=== PATIENT | male | born 1965 | race Caucasian/White ===

== ENCOUNTER 2021-11-14 09:27 | Outpatient (CLI) | payer OTHER, SELFPAY ==
[2021-11-14 13:19] LABS: Chloride* 104 mmol/L (96-114); Potassium* 4.5 mmol/L (3.6-5.1); Sodium* 140 mmol/L (135-149)
[2021-11-14 13:22] LABS: Blood Urea Nitrogen* 12 mg/dL (7-30); Carbon Dioxide* 32 mmol/L (20-32); Cholesterol* 154 mg/dL (90-199); Creatinine* 0.8 mg/dL (0.5-1.5); Estimated Glomerular Filt Rate 103 ml/min; Glucose* 94 mg/dL (60-115)
[2021-11-14 13:23] LABS: Calcium* 9.5 mg/dL (8.4-10.6); HDL Cholesterol* 46 mg/dL (>=40); LDL Cholesterol Calculated 69 mg/dL (<100); Triglycerides* 196 mg/dL (40-149)
== END 2021-11-14 09:28 | disposition home or self-care (01) ==
PROVIDERS: Visit Provider Family Medicine
DX: Z01.818 Encounter for other preprocedural examination (principal); E78.5 Hyperlipidemia, unspecified; I10 Essential (primary) hypertension
CPT/HCPCS: 80048; 80061

== ENCOUNTER 2022-02-04 17:14 | Outpatient (CLI) | payer OTHER, SELFPAY ==
[2022-02-04 22:08] LABS: Albumin* 4.3 g/dL (3.3-5.0); Chloride* 100 mmol/L (96-114)
[2022-02-04 22:09] LABS: Potassium* 3.9 mmol/L (3.6-5.1); Sodium* 139 mmol/L (135-149)
[2022-02-04 22:11] LABS: Alanine Aminotransferase* 25 U/L (4-50); Alkaline Phosphatase* 80 U/L (40-150); Aspartate Amino Transferase* 28 U/L (12-35); Bilirubin Total* 0.5 mg/dL (0.1-1.5); Blood Urea Nitrogen* 16 mg/dL (7-30); Carbon Dioxide* 28 mmol/L (20-32); Creatinine* 0.8 mg/dL (0.5-1.5); Estimated Glomerular Filt Rate 103 ml/min; Glucose* 104 mg/dL (60-115); Total Protein* 6.8 g/dL (6.0-8.3)
[2022-02-04 22:12] LABS: Calcium* 9.8 mg/dL (8.4-10.6)
== END 2022-02-04 17:15 | disposition home or self-care (01) ==
LOC: FRMREF 17:15
PROVIDERS: PCP Family Medicine; Visit Provider Family Medicine
DX: Z01.818 Encounter for other preprocedural examination (principal); I10 Essential (primary) hypertension
CPT/HCPCS: 80053

== ENCOUNTER 2022-02-13 06:37 | Day surgery (SDC) | payer OTHER, SELFPAY ==
[2022-02-13] VITALS (42 sets, daily range): BP systolic 104–151; BP diastolic 40–106; PULSE 86–108; RESP 16–20; TEMP 35.9–36.6; O2SAT 88–95; BMI 34.9
[2022-02-13] MEDS: SODIUM CHLORIDE 0.9 % (FLUSH) 10 ML SYRINGE IVF (07:35)
[2022-02-13] MEDS: LACTATED RINGERS 1000 ML 1,000 ML 100 ML IV (07:35)
[2022-02-13] MEDS: fentaNYL 100 MCG/2 ML inj IVP (07:40)
[2022-02-13] MEDS: MIDAZOLAM HCL 1 MG/ML inj IVP (07:40)
--- NOTE | 2022-02-13 07:48 | W.PM.NB ---
Nerve Block Nerve Block Time Seen by Provider: 07:40 Date Seen: 02/13/22 Type of block requested by surgeon for post-operative analgesia: interscalene Side: left Time out performed: Yes Verification of patient name: Yes Verification of date of : Yes Site marking: site marked Name of person performing procedure: Chan Continuous monitoring Was continuous monitoring of O2 sat, B/P, teletypesetter monitor, recorded every 15 minutes?: Yes Procedure Checklist: sterile prep, needles and gloves Ultrasound guided. Images saved: Yes Medications given in 5ml increments after negative aspiration: Ropivicaine %: 0.5 mL: 20 Needle gauge: 22 Decadron (mg): 10 Precedex (mcg): 25 Patient tolerated procedure well: Yes Block Charges Block Charge (with Pro Fee): Brachial Plexus Use of Ultrasound Machine for Block: Yes- US Guidance/pain block
--- NOTE | 2022-02-13 07:53 | SUR.PREOP ---
TIME?OUT:?7:42 am PT/RN/MDA?VERIFICATION?OF?SURGICAL?SITE,?PROCEDURE,?AND?CONSENT OBTAINED?PRIOR?TO?INVASIVE?PROCEDURE.
[2022-02-13] MEDS: EPINEPHrine 1 MG in SODIUM CHLORIDE IRRIG SOLUTION 3,000 ML 9003 MG IRRIGATION ×4 (08:00→09:00)
--- NOTE | 2022-02-13 08:09 | SUR.PREOP ---
Verified neg covid antigen test taken at home on 02/12/22
--- NOTE | 2022-02-13 10:18 | CRLHL7_ITS ---
For Patients: As a result of the Cures Act, medical imaging exams and procedure reports are released immediately into your electronic medical record. You may view this report before your referring provider. If you have questions, please contact your health care provider. Indication: POST OP LEFT RCR Technique: Left shoulder 2 views. Comparison: None. Findings: Postop changes the. No fracture. Impression: Postop changes. No dislocation or acute fracture. Dictated by Robert Handley MD @ 02/13/2022 11:43:32 AM (Electronically Signed)
--- NOTE | 2022-02-13 10:41 | W.ANESCHARGE ---
Anesthesia Charges Start Date/Time Anesthesia Start Date: 02/13/22 Anesthesia Start Time: 08:29 Stop Date/Time Anesthesia Stop Date: 02/13/22 Anesthesia Stop Time: 10:46 Summary Emergency: No
--- NOTE | 2022-02-13 10:44 | W.ANESCHARGE ---
Anesthesia Charges Start Date/Time Anesthesia Start Date: 02/13/22 Anesthesia Start Time: 08:29 Stop Date/Time Anesthesia Stop Date: 02/13/22 Summary Emergency: No
--- NOTE | 2022-02-13 12:17 | PM.ORPRC ---
Procedure Note Date of procedure: 02/13/22 Procedure: PREOPERATIVE DIAGNOSES: 1. Left shoulder rotator cuff tear. 2. Left shoulder long head of biceps subluxation POSTOPERATIVE DIAGNOSES: 1. Left shoulder rotator cuff tear - upper border subscapularis; high-grade partial-thickness supraspinatus 2. Left shoulder long head of biceps subluxation 3. Left shoulder anterior and superior degenerative labral fraying tearing 4. 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 Left shoulder arthroscopic rotator cuff repair upper border subscapularis and high-grade partial-thickness supraspinatus tears. 2. Left shoulder arthroscopic long head of biceps tenodesis 3. Left shoulder arthroscopic extensive glenohumeral debridement SURGEON: Norbert Gallegos MD DOOR TO DOOR SELLING DISTRIBUTOR: Raheel Carver PA-C. Of note, a skilled assistant site manager was critical for this case to aide in patient positioning, suture manipulation, arm positioning, instrument positioning, and closure. ANESTHESIA: General plus preoperative supraclavicular block. EBL: Less than 50 mL IMPLANTS: Arthrex 4.75 mm BioComposite SwiveLock suture anchor (x2); 5.5 mm BioComposite SwiveLock suture (x1) COMPLICATIONS: None evident INDICATIONS: The patient is a pleasant, 56-year-old male who has experienced left shoulder pain that has been increasing in recent time. Physical exam and imaging were consistent with a rotator cuff tear. Given their findings, as well as the weakness and pain, and inadequate response to nonoperative management, recommendation was made for surgery. FINDINGS: Exam under anesthesia revealed stable shoulder with excellent range of motion. The diagnostic arthroscopy revealed grade 2-3 chondromalacia anterior superior humeral head with some loose chondral flaps. The Subscapularis tendon was intact and with a healthy attachment. The long head of the biceps tendon was subluxed through the bicipital groove and showed some low-grade partial-thickness tearing. The superior rotator cuff tendon was found to be torn and high-grade partial-thickness manner through the anterior to midportion of the supraspinatus. The labrum was degeneratively frayed and torn in the anterior and superior aspects. No loose bodies were identified within the pouch or subscapularis recess. PROCEDURE: Following a thorough discussion of risks, benefits, and alternatives, consent was obtained and the left shoulder was marked. The patient was brought to the operating room and placed supine on the operating table. Induction of anesthesia was completed after preoperative supraclavicular block was administered in preop holding. Appropriate time out was performed identifying proper patient, site, and procedure. 2 g IV Ancef was administered within 1 hour of incision preoperatively. The left upper extremity was prepped and draped in the appropriate sterile fashion using ChloraPrep prep. This was after the patient was positioned in the beach chair with their head in neutral alignment and all bony prominences well padded. The shoulder was insufflated with 20mL of normal saline via an 18g spinal needle from a posterior approach. An 11 blade skin incision allowed a blunt trochar to be inserted and diagnostic arthroscopy to be performed with the findings as noted above. An anterior portal was established with an outside in technique. This allowed the probe to be inserted and confirm the diagnostic arthroscopic findings. The shaver was then inserted and allowed debridement of the anterior and superior labrum as well as the humeral loose chondral flap tissue and biceps anchor stump region. The deep surface of the infraspinatus also underwent minor debridement which was separate from the repair location of the supraspinatus high-grade partial-thickness tear. Additionally, the long of the biceps was captured with a loop 'n tack technique and subsequently released from the bicipital tuberosity for arthroscopic tenodesis after debriding/preparing the bicipital groove and lesser tuberosity with the bur on reverse setting and a shaver. The stump was debrided with a shaver. Following this, the upper border subscapularis was repaired after debriding the lesser tuberosity with the shaver and Rake cautery. Subscapularis was captured in horizontal mattress fashion with a fiber tape suture. The tails were brought to a single anchor in the lesser tuberosity with excellent reapproximation of the subscap tendon and good excursion/tension. Thereafter, the subacromial space was entered. Here, complete bursectomy was performed. Further inspection of the supraspinatus and infraspinatus rotator cuff was performed. This identified week tissue on the bursal side. This was probed and indeed the probe penetrated through the tissue consistent with a high-grade partial-thickness tear. After gentle decortication of the greater tuberosity, a medial row anchor was placed with the FiberTapes pre-loaded. The 4 tails of the tapes and the eyelet sutures were then passed independently. These tails were brought to a single lateral row anchor with excellent reapproximation of the rotator cuff tissue and good stability. Prior to anchor funeral limousine driver removal, the eyelet sutures were tugged on for each anchor and found that the anchor had excellent stability within the bone. The shoulder was placed through range of motion and found to be stable. The rotator cuff was re-probed and found to be stable. Instruments were removed. Excess fluid was drained, closure performed with 4-0 Monocryl and Steri-Strips. Dressings were applied. Sling was applied. The patient was awoken from anesthesia and transferred to the PACU in stable condition. Of note, the needle tip from the scorpion needle did break off during the procedure. Although thorough inspection throughout subacromial space and glenohumeral joint showed no metallic foreign body, it is possible may have been washed out of the shoulder during her procedure and not appreciated. Postop radiographs of the shoulder did not reveal any metallic foreign body suggesting that it was not indeed present within the shoulder. A skilled assistant site manager was critical for this case to aid in patient positioning, limb positioning, skill to manipulate arthroscopic instruments and camera, suture management, patient safety, and closure. PLAN: 1. Elbow, forearm, wrist and digit range of motion of operative extremity as tolerated. 2. Encouraged ice. 3. Percocet for pain as needed. 4. Sling at all times except for ROM and showering. 5. Follow up with PA visit in 1-2 weeks for wound check. Initiate physical therapy following that visit for passive range of motion. Initiate active assisted range of motion at 3weeks. May do pendulums now.
--- NOTE | 2022-02-13 12:38 | W.ANESCHARGE ---
Anesthesia Charges Start Date/Time Anesthesia Start Date: 02/13/22 Anesthesia Start Time: 08:29 Stop Date/Time Anesthesia Stop Date: 02/13/22 Anesthesia Stop Time: 10:46 Summary Emergency: No
== END 2022-02-13 13:30 | disposition home or self-care (01) ==
PROVIDERS: PCP Family Medicine; Visit Provider Orthopaedic Surgery Sports Medicine
PROC: (CPT 29805; principal; 2022-02-13 08:15)
DX: M75.112 Incomplete rotator cuff tear or rupture of left shoulder, not specified as traumatic (principal); S43.432A Superior glenoid labrum lesion of left shoulder, initial encounter; M24.812 Other specific joint derangements of left shoulder, not elsewhere classified
CPT/HCPCS: 29827; 29828; 29823; 1630; 64415; 73030; 76942; C1713; J0171; J0330; J1100; J2250; J2370; J2405; J2704; J2710; J2795; J3010; J7120

== ENCOUNTER 2022-05-29 16:45 | Outpatient (RCR) | payer OTHER, SELFPAY | END 2022-10-31 23:59 | disposition home or self-care (01) | PROVIDERS: PCP Family Medicine; Visit Provider Physician Assistant Surgical | DX: Z98.890 Other specified postprocedural states (principal); M25.512 Pain in left shoulder; R53.1 Weakness; M25.60 Stiffness of unspecified joint, not elsewhere classified; Z51.89 Encounter for other specified aftercare | CPT/HCPCS: 97012; 97110; 97140; 97161 ==

== ENCOUNTER 2022-11-13 08:46 | Outpatient (CLI) | payer BC, SELFPAY ==
--- NOTE | 2022-11-13 09:15 | MR_ITS ---
[address] [address] Phone:?[phone] Fax:?[phone] Referring Physician Information: Norbert Gallegos M.D. [address] [facility] [address] Phone:?[phone] Fax:?[phone] Patient:Romulo Herr D.O.B:?1965 Sex:?Male Phone:?[phone] [facility] MRN:?[id number] Exam Date:?11/13/2022 EXAM: MRI OF THE LEFT KNEE CLINICAL INFORMATION: The patient is a 57-year-old with left knee pain. Evaluate for medial meniscal tear. PRIOR SURGERY: The patient has a history of prior surgery to the region. COMPARISON STUDIES: Comparison is made to prior radiographs dated 11/05/2022. TECHNICAL INFORMATION: Imaging was performed on a high-field, 1.5 Ludivina MR scanner. Axial proton-density and fat-suppressed T2 imaging of the left knee was performed in addition to sagittal proton-density and fat-suppressed proton- density imaging. Coronal proton-density and coronal STIR imaging was also performed. FINDINGS: Articular/Extraarticular collections: Effusion: Mild. Popliteal cyst: Minimal. Loose bodies: No well-defined intra-articular loose bodies are present. Subcutaneous and extraarticular soft tissues: Nonspecific subcutaneous soft tissue edema and/or hemorrhage can be seen circumferentially about the left knee. Osseous structures: Reactive marrow edema can be seen along the posterolateral aspect of the medial tibial plateau in the region of the meniscotibial attachment on coronal series 9 image 22. The findings are likely related to the meniscal tearing discussed below. No other bony abnormalities about the knee are seen. There is no evidence for fracture, contusion, or stress injury. Ligamentous structures: ACL: Intact and normal in appearance. PCL: Intact and normal in appearance. MCL: Intact and normal in appearance. LCL: Intact and normal in appearance. Posterolateral corner: Intact and normal in appearance. Posteromedial corner: No posteromedial corner soft tissue injury. Semimembranosus and pes anserine tendons demonstrate no tendinopathy or associated bursitis. Extensor mechanism/Patellar retinacular structures: Patellar tendon: Intact, without tendinopathy. Quadriceps tendon: Intact, without tendinopathy. Retinacula: The medial and lateral retinacula are intact. The medial patellofemoral ligament is intact. Medial compartment: Medial meniscus: The medial meniscus is abnormal in appearance. There is apical free edge and inferior surface tearing of the posterior horn, seen on coronal series 8 image 22 and on sagittal series 6 image 9. The area of tearing measures approximately 24 mm in mediolateral dimension. Additional inferior surface tearing of the middle one third of the medial meniscus can be seen on coronal series 8 image 20. The anterior horn of the medial meniscus appears intact. No parameniscal cyst formation is identified. Medial femoral condyle: Broad-based changes of grade II chondromalacia can be seen along the weightbearing surfaces of the medial femoral condyle. Medial tibial plateau: No chondromalacia, chondral defect, or osteochondral abnormality. Lateral compartment: Lateral meniscus: No evidence for lateral meniscal tearing is present. No evidence for parameniscal cyst formation can be seen. Lateral femoral condyle: No chondromalacia, chondral defect, or osteochondral abnormality. Lateral tibial plateau: No chondromalacia, chondral defect, or osteochondral abnormality. Patellofemoral compartment: Patella: There is a focus of full-thickness or near full-thickness chondral loss along the articular surfaces of the patella at the junction of the apex and lateral facet on axial series 5 image 10, measuring 8 mm in greatest dimension. Additional grade II to III chondromalacia involving the remaining articular surfaces of the patella can be seen. Trochlea: No chondromalacia, chondral defect, or osteochondral abnormality. Neurovascular: No definite neurovascular abnormalities are seen. CONCLUSION: 1. Broad-based tearing of the middle and posterior portions of the medial meniscus. No lateral meniscal tearing is seen. 2. Chondromalacia and chondral loss involving the patella and medial femoral condyle. 3. The cruciate and collateral ligaments appear intact. 4. Mild knee joint effusion and minimal popliteal cyst. [facility] Electronically signed on 11/13/2022 12:21:00 PM by Killian Arrington M.D.
== END 2022-11-13 08:47 | disposition home or self-care (01) ==
LOC: MRI 08:47
PROVIDERS: PCP Family Medicine; Visit Provider Orthopaedic Surgery Sports Medicine
DX: M25.562 Pain in left knee (principal); S83.242A Other tear of medial meniscus, current injury, left knee, initial encounter; M22.42 Chondromalacia patellae, left knee; M25.462 Effusion, left knee
CPT/HCPCS: 73721

== ENCOUNTER 2022-12-09 08:32 | Outpatient (CLI) | payer BC, SELFPAY | END 2022-12-09 08:33 | disposition home or self-care (01) | PROVIDERS: PCP Family Medicine; Visit Provider Family Medicine | DX: Z01.818 Encounter for other preprocedural examination (principal); E78.5 Hyperlipidemia, unspecified; I10 Essential (primary) hypertension; E66.9 Obesity, unspecified; Z12.5 Encounter for screening for malignant neoplasm of prostate | CPT/HCPCS: 80048; 80061; 84153; 84460; 85025 ==

== ENCOUNTER 2022-12-11 07:43 | Day surgery (SDC) | payer BC, SELFPAY ==
[2022-12-11] VITALS (14 sets, daily range): BP systolic 81–140; BP diastolic 49–97; PULSE 78–90; RESP 16–20; TEMP 36.3–36.6; O2SAT 92–97; BMI 35.8
[2022-12-11] MEDS: LACTATED RINGERS 1000 ML 1,000 ML 100 ML IV ×2 (08:05→11:03)
[2022-12-11] MEDS: SODIUM CHLORIDE 0.9 % (FLUSH) 10 ML SYRINGE IVF (08:05)
[2022-12-11] MEDS: CEFAZOLIN 2 GM in 0.9 % SODIUM CHLORIDE Mini-bag 100 ML IVPB (10:03)
--- NOTE | 2022-12-11 10:13 | W.ANESCHARGE ---
Anesthesia Charges Start Date/Time Anesthesia Start Date: 12/11/22 Anesthesia Start Time: 09:39 Stop Date/Time Anesthesia Stop Date: 12/11/22 Anesthesia Stop Time: 10:35
--- NOTE | 2022-12-11 10:17 | P.ORPRC_ITS ---
Procedure Note Date of procedure: 12/11/22 Procedure: PREOPERATIVE DIAGNOSIS: 1. Left knee medial meniscus tear POSTOPERATIVE DIAGNOSIS: 1. Left knee medial meniscus tear PROCEDURE: 1. Left knee arthroscopic partial medial meniscectomy SURGEON: Norbert Gallegos M.D. FINANCIAL BROKERS: Camille Esteban. Of note, an computer assistant was critical for this case to aid in patient positioning, knee manipulation, instrument exchange, and closure. ANESTHESIA: Spinal EBL: 25 mL TOURNIQUET: 25 minutes at 300 torr COMPLICATIONS: None evident INDICATIONS: The patient is a pleasant 57-year-old male who has experienced left knee pain particularly with any twisting or turning. Physical exam was concerning for medial meniscus tear, this was confirmed on MRI. Additionally, attempted nonoperative management has been tried, and failed. Thus, surgery was recommended. FINDINGS: Complex tearing medial meniscus from the posterior horn approaching the midbody. Posterior root was still intact. Grade 3 chondromalacia broadly through the weight-bearing portion medial femoral condyle. Lateral meniscus intact. ACL and PCL intact and robust. Grade 3 chondromalacia patella median ridge and medial facet as well as medial aspect of the lateral facet. Healthy articular cartilage lateral compartment. No loose bodies. DESCRIPTION OF PROCEDURE: After a thorough discussion of risks, benefits, and alternatives, the patient was brought to the operating room and placed upon the operating table. Induction of anesthesia was undertaken as previously noted. 2g iv Ancef was administered within 1 hr of incision preoperatively. Appropriate time-out was performed identifying proper patient, site, and procedure. The left lower extremity was prepped and draped in the appropriate sterile fashion using ChloraPrep. The limb was exsanguinated and tourniquet inflated. Anterolateral and anteromedial portals were established with an 11 blade, and a diagnostic arthroscopy was performed. This identified the findings as noted above. Following the diagnostic arthroscopy, a partial medial menisectomy was performed with the combination of basket forceps and a motorized shaver. Following this, the meniscus was re-probed and found to be stable. Approximately 20 % of the overall meniscus required resection. At this stage, the shaver was reinserted into the suprapatellar pouch and all remaining meniscal debris was evacuated. Instruments were removed, excess fluid was drained, and closure performed with 4-0 Monocryl with Steri-Strips. Dressings were applied, the tourniquet deflated, and the patient was awoken from anesthesia and transferred to the PACU in stable condition. PLAN: 1. Weightbear as tolerated operative extremity. Crutch / walker ambulation assistance PRN. Straight leg raise to be initiated starting tomorrow by the patient. 2. Ice, acetominophen and/or ibuprofen, and oxycodone for pain as needed. 3. Knee range of motion and quad sets/straight leg raise regularly 4. Follow up with PA visit in 7-10 days. for a wound check. Initiate physical therapy at that time
--- NOTE | 2022-12-11 10:21 | SUR.OPER ---
PATIENT QUESTIONS ANSWERED SATISFACTORILY PREOPERATIVELY.? PATIENT BROUGHT TO OR #3 PER CART.? Patient positioned supine on OR #3 bed.? The perioperative?team supported arms bilaterally on arm boards.? Final approval of positioning by surgeon.? CONTINUOUS IRRIGATION OF THE RIGHT KNEE DURING THE PROCEDURE WITH NACL.
[2022-12-11] MEDS: ROPIVACAINE 0.5% 30 ML 150 MG INJECTION (10:22)
== END 2022-12-11 12:05 | disposition home or self-care (01) ==
LOC: OR 07:44
PROVIDERS: PCP Family Medicine; Visit Provider Orthopaedic Surgery Sports Medicine
PROC: (CPT 29870; principal; 2022-12-11 09:30)
DX: S83.272A Complex tear of lateral meniscus, current injury, left knee, initial encounter (principal); M94.262 Chondromalacia, left knee
CPT/HCPCS: 29881; 01400; J0690; J2250; J2405; J2704; J2795; J3010; J7120

== ENCOUNTER 2022-12-31 16:12 | Outpatient (REF) | payer BC, SELFPAY ==
--- OUTSIDE RECORDS SUMMARY | 2022-12-31 16:16 | XMS_ITS | Continuity of Care Document ---
Author Name Unknown Organization [facility] Address [address] [place] [address] Phone Care Team Providers Care Front Desk Worker Name Role Phone Robert Mary Unavailable Unavailable Allergies, Adverse Reactions, Alerts Substance Reaction Status Criticality No Known Allergies Active No Inform ation Medications Medication Instructions Dosage Effective Dates (start - stop) Status Comments VALSARTAN-HYDROCHLOROTH IAZIDE (unknown strength) Not Available - Active ASPIRIN EC (unknown strength) Not Available - Active MULTIVITAMINS (unknown strength) Not Available - Active OMEPRAZOLE (unknown strength) Not Available - Active CURCUMIN (unknown strength) Not Available - Active Procedures Procedure Date [place] [facility] [place] Directives Directive Yes / No Effective Date File Name No Information Encounters Encounter Description Practice Location Reason(s) For Visit Diagnoses Date Provider Providers Copied on Encounter Office/Outpat ient Visit,New, [facility], [address], [place], [place], [id number], [place] tel:[phone] [facility] Other intervertebral disc degeneration, lumbar regionSpinal stenosis, lumbar region without neurogenic claudication 0 Panelainea Robert. [facility], [address] [place] [address], [address], [place], [place], [id number] , [place]. tel:[phone] Referring Provider: Giles Billingsley , [facility] [address], [place], [address]. tel:[phone] Family History Family Member Type Diagnosis Age At Onset No Information Payers Payer name Insurance type Covered republican ID Authoreugenea raza(s) [employer] Individual And Family Plans CI [id number] Social History Type Description Quantity Date Captured Comments Alcohol Use Details Unknown Caffeine Use Details Unknown Tobacco Use Status Occasional cigarette smoker Smoking Status Heavy tobacco smoker Smoking Tobacco Use Details Cigarette: No Details Available Cigarette: 1 Packs per day Sex Male Vital Signs Date / Time: Height Weight BMI Pulse Rate Blood Pressure Temperature Respiratory Rate Body Surface Area Head Circumference Head Circ. Percentile Wt./Hieu. Percentile BMI percentile Pulse Ox Inhaled Ox 2:43 PM 68.00 in 98.883 kg (218.00 lbs) 33.1 5 kg/m eter (2) 91 /min 121/91 mm[Hg] Chief Complaint And Reason For Visit No Information Reason For Referral Reason For Referral No Information History Of Present Illness Encounter Date Complaint History Of Prese nt Illness No Information Functional Status Date Functional Assessmen t No Information Instructions Date Instruction Additional Infor mation No Information Assessments Type Assessment Date assessment Other intervertebral disc degene ration, lumbar region assessment Spinal stenosis, lumbar region w ithout neurogenic claudication Patient Care Teams Name Effective Dates (start - stop) Status Members No Information
--- OUTSIDE RECORDS SUMMARY | 2022-12-31 16:56 | XMS_ITS | Continuity of Care Document ---
Author Name Unknown Organization [facility] Address [address] [place] [address] Phone Care Team Providers Care Applications Intern Name Role Phone Robert Mary Unavailable Unavailable [...] - Active Procedures Procedure Date Office/Outpatient Visit,New, [facility] [place] Advance Directives Directive Yes / No Effective Date File Name No Information Encounters Encounter Description Practice Location Reason(s) For Visit Diagnoses Date Provider Providers Copied on Encounter Office/Outpat ient Visit,New, [facility], [address], [place], [place], [id number], [place] tel:[phone] [facility] Other intervertebral disc degeneration, lumbar regionSpinal stenosis, lumbar region without neurogenic claudication 0 Panelainea Robert. [facility], [address] [place] [address], [address], [place], [place], [id number] , [place]. tel:[phone] Referring Provider: Giles Billingsley , [facility] [address], [place], [address]. tel:[phone] Family History Family Member Type Diagnosis Age At Onset No Information Payers Payer name Insurance type Covered alliance party ID Authoreugenea raza(s) [employer] Individual And Family Plans CI [id number] Social History Type Description Quantity Date [...]
[2022-12-31 20:10] LABS: Mononuclear WBC Body Fluid* 97 %; Polynuclear WBC Body Fluid* 3 %; RBC, Body Fluid* 3000 Cells/uL; WBC, Body Fluid* 843 Cells/uL
[2022-12-31 20:13] LABS: BF Clarity* Slightly Cloudy; BF Color Xanthochromic; BF Total Volume* 6
== END 2022-12-31 16:13 | disposition home or self-care (01) ==
LOC: NPINS 16:12
PROVIDERS: PCP Family Medicine; Visit Provider Physician Assistant Surgical
DX: Z98.890 Other specified postprocedural states (principal); Z87.828 Personal history of other (healed) physical injury and trauma
CPT/HCPCS: 87070; 87075; 87205; 89051; 89060

== ENCOUNTER 2023-01-01 08:11 | Outpatient (CLI) | payer BC, SELFPAY ==
--- OUTSIDE RECORDS SUMMARY | 2023-01-01 08:14 | XMS_ITS | Continuity of Care Document ---
Author Name Unknown Organization [facility] Address [address] [place] [address] Phone Care Team Providers Care Molecular Physicist Name Role Phone Robert Mary Unavailable Unavailable [...] - Active Procedures Procedure Date [place] [facility] [place] Directives Directive Yes / No Effective Date File Name No Information Encounters Encounter Description Practice Location Reason(s) For Visit Diagnoses Date Provider Providers Copied on Encounter Office/Outpat ient Visit,New, [facility], [address], [place], [place], [id number], [place] tel:[phone] [facility] Other intervertebral disc degeneration, lumbar regionSpinal stenosis, lumbar region without neurogenic claudication 0 Panelainea Robert. [facility], [address] [place] [address], [address], [place], [place], [id number] , [place]. tel:[phone] Referring Provider: Giles Billingsley , [facility] [address], [place], [address]. tel:[phone] Family History Family Member Type Diagnosis Age At Onset No Information Payers Payer name Insurance type Covered green party ID Authoreugenea raza(s) [employer] Individual And Family Plans CI [id number] Social History Type Description Quantity Date [...]
== END 2023-01-01 08:12 | disposition home or self-care (01) ==
PROVIDERS: PCP Family Medicine; Visit Provider Family Medicine
DX: Z00.00 Encounter for general adult medical examination without abnormal findings (principal); E78.5 Hyperlipidemia, unspecified; I10 Essential (primary) hypertension; E66.9 Obesity, unspecified; Z12.5 Encounter for screening for malignant neoplasm of prostate
CPT/HCPCS: 82043; 82570; 84153

== ENCOUNTER 2023-02-05 18:30 | Outpatient (CLI) | payer BC, SELFPAY ==
--- NOTE | 2023-02-05 19:00 | MR_ITS ---
[facility] [address] [facility] [address] Phone:?[phone] Fax:?[phone] Referring Physician Information: Norbert Gallegos M.D. [address] [facility] [address] Phone:?[phone] Fax:?[phone] Patient:Romulo Herr D.O.B:?1965 Sex:?Male Phone:?[phone] [facility] MRN:?[id number] Exam Date:?02/05/2023 EXAM: MRI of the LEFT KNEE, without contrast CLINICAL: Left knee effusion. History of prior surgery in November 2022. Evaluate for stress reaction/fracture of the medial femoral condyle. COMPARISONS: MRI 11/13/2022. TECHNICAL: Multiplanar multisequence MRI of the left knee was obtained. SEDATION: None. CONTRAST: None. FINDINGS: Ligaments: ACL: Intact and unremarkable. PCL: Intact and unremarkable. MCL: Intact and unremarkable. LCL: Intact and unremarkable. Posterolateral corner: There is mild edema involving the popliteus muscle. Popliteus tendon, distal biceps femoris tendon, iliotibial band, and the popliteofibular ligament appear intact. Posteromedial corner: Semimembranosus, pes anserine tendons and posterior oblique ligament appear intact. Extensor mechanism: Patellar tendon: Intact, without tendinopathy. Quadriceps tendon: Intact, without tendinopathy. Retinacula: Medial and lateral retinacula are intact. Fat pads: Unremarkable infrapatellar Hoffa's, quadriceps and prefemoral fat pads. Patellofemoral joint: Patella: Small 6 mm segment of high-grade chondral loss involves the patellar median ridge on axial series 4 image 10 similar prior exam. Trochlea: Chondromalacia appears similar to prior exam. Medial compartment: Medial meniscus: Complex tearing of the posterior horn extending into the body and posterior root appears similar to prior examination. Also suspect postoperative changes involving the meniscus. There is medial extrusion of the peripheral body segment medial meniscus by approximately 3 mm. Medial cartilage: Full-thickness chondral loss involving the medial femoral condyle is increased compared to prior examination with underlying subchondral marrow edema. No new chondral defect involving the medial tibial plateau. Lateral compartment: Lateral meniscus: Ill-defined degenerative fraying involving the free edge of the body segment appears similar to prior exam. No new meniscal tear or displacement. Lateral cartilage: No significant chondromalacia. Knee joint: Effusion: Moderate left knee effusion. Intra-articular bodies:?There is synovitis and possibly intra-articular bodies within the suprapatellar joint recess. Tiny intra-articular body along the peripheral anterior horn lateral meniscus is seen on sagittal series 6 image 20. Popliteal cyst: None. Bones: No suspicious bone marrow signal alteration or fracture line. IMPRESSION: 1. Tearing of the medial meniscus similar to prior examination with suspected postoperative changes involving the medial meniscus. Approximately 3 mm of medial extrusion of the peripheral body segment medial meniscus. 2. Ill-defined degenerative fraying involving the free edge of the body segment lateral meniscus similar to prior exam. No new lateral meniscal tear. 3. Full-thickness chondral loss involving the medial femoral condyle is increased compared to prior examination with underlying subchondral marrow edema. Patellofemoral chondromalacia appears similar to prior exam. 4. Moderate left knee joint effusion with synovitis and possibly intra-articular bodies within the suprapatellar joint recess. Tiny intra-articular body along the peripheral anterior horn lateral meniscus. 5. No evidence of fracture or ligamentous injury. [facility] Electronically signed on 02/06/2023 7:41:00 AM by Grey Boudreaux D.O.
== END 2023-02-05 18:31 | disposition home or self-care (01) ==
LOC: MRI 18:32
PROVIDERS: PCP Family Medicine; Visit Provider Orthopaedic Surgery Sports Medicine
DX: M25.562 Pain in left knee (principal); M25.462 Effusion, left knee; S83.242A Other tear of medial meniscus, current injury, left knee, initial encounter; M22.42 Chondromalacia patellae, left knee; Z98.890 Other specified postprocedural states; Z87.828 Personal history of other (healed) physical injury and trauma
CPT/HCPCS: 73721

== ENCOUNTER 2023-07-24 17:16 | Outpatient (CLI) | payer BC, SELFPAY ==
--- OUTSIDE RECORDS SUMMARY | 2023-07-24 17:20 | XMS_ITS | Clinical Summary ---
Author Name Unknown Organization [employer] [facility] Address [place], [place] [address] Care Team Providers Care Press Box Custodian Name Role Phone [facility] Primary Care Provider Unavailabl e Allergies No known active allergies Medications Medication Sig Dispensed Refills Start Date End Date Status multivitamin-folic acid 0.4 mg (MULTIPLE VITAMINS DAILY) tablet Take 1 tablet by mouth once daily. 0 06/14/2010 Active esomeprazole (NEXIUM) 20 mg capsule Take 1 capsule by mouth once daily before a meal. 90 capsule 3 10/07/2013 Active hydrochlorothiazide (HCTZ) 25 mg tabletIndications:Hyp ertension TAKE ONE TABLET BY MOUTH EVERY DAY 90 tablet 0 07/12/2014 Active lisinopril (PRINIVIL; ZESTRIL) 10 mg tabletIndications:Ess ential hypertension Take 1 tablet by mouth once daily. For blood pressure. 90 tablet 2 05/11/2018 Active cyclobenzaprine (FLEXERIL) 10 mg tabletIndications:Chr onic midline low back pain without sciatica Use up to three times daily for muscle spasm/back pain. Use mostly at night only, may make you drowsy. 45 tablet 1 05/11/2018 Active Active Problems Problem Noted Date Diagnosed Date Obesity (BMI 30-39.9) 10/07/2013 Tobacco use disorder 03/06/2012 Essential hypertension 04/27/2010 Esophageal reflux 06/01/2008 Overview: Taking nexium. Has not had EGD. Immunizations Name Administration Dates Next Due HepA-HepB (Twinrix) 10/07/2013 Tdap 03/06/2012 Family History Relation Name Status Comments Father Maternal Grandfather Maternal Grandmother Mother Paternal Grandfather Paternal Grandmother Social History Tobacco Use Types Packs/Day Years Used Date Smoking Tobacco: Every Day Cigarettes 1.5 21 Smokeless Tobacco: Never Tobacco Cessation:Ready to Q uit: No Comments:pt declined info 07/24/11 Alcohol Use Standard Drinks/Week Comments Yes 0 (1 standard drink = 0.6 oz pur e alcohol) rare PHQ-2 Answer Date Recorded PHQ-2 Score 0 06/15/2018 Sex and Gender Information Value Date Recorded Sex Assigned at Not on file Gender Identity Not on file Sexual Orientation Not on file Obstetrics History Last Filed Vital Signs Vital Sign Reading Time Taken Comments Blood Pressure 126/88 05/11/2018 4:14 PM [employer] Pulse 84 05/11/2018 4:14 PM [employer] Temperature 36.9 ??C (98.5 ??F) 02/11/2014 8:45 AM CD T Respiratory Rate - - Oxygen Saturation 97% 02/11/2014 8:45 AM CDT Inhaled Oxygen Concentration - - Weight 103.2 kg (227 lb 9.6 oz) 05/11/2018 4:14 PM [employer]EL[employer] Height 172.7 cm (5' 8) 10/07/2013 7:50 AM CDT Body Mass Index 34.61 10/07/2013 7:50 AM CDT Plan of Treatment Health Maintenance Due Date Last Done Comments HIV for age 15-65 1979 BMI (ht and wt on same day) for age 18+ 1982 Colonoscopy through age 75 2009 Zoster (shingles) series for age 50+ (1 of 2) 2014 Lipids for age 45-75 04/11/2015 04/11/2010 Depression screening for age 12+ 05/11/2019 05/11/19 19 Tetanus booster 03/06/2022 03/06/2012 COVID-19 vaccine series ( season) 2022 Influenza for age 50-64 12/14/2023 Tdap Completed 03/06/2012 Hepatitis C screening for ag e 18-79 Completed 10/07/2013 Pneumococcal series for age 6-64 Aged Out No longer eligible based on patient's age to complete this topic Procedures Procedure Name Priority Date/Time Associated Diagnosis Comments ANTI HCV Routine 10/07/2013 8:48 AM CDT Need for hepatitis C screening test LIPID PANEL W REFLEX MEASURED LDL Routine 04/11/2010 3:57 PM [employer]ELOPER Screening, lipid from Last 3 Months or Most Recently Relevant to Health Maintenance Results * ANTI HCV [76762.2] (10/07/2013 8:48 AM CDT) HEPATITIS C ANTIBODY Non-Reacti ve Non-Reacti ve 10/07/2013 5:57 PM CDT [facility] Blood specimen (specimen) BLOOD SPECIMEN / Unknown Venipuncture / Unknown 10/07/2013 8:48 AM CDT 10/07/2013 8:48 AM CDT Narrative [facility] - 10/07/2013 5:57 PM CDT Antibodies to HCV not detected; does not exclude the possibility of exposure to HCV. Radha Casiano MD SEND OUTS [facility] [address] [place] [address], * LIPID PANEL W REFLEX MEASURED LDL (04/11/2010 3:57 PM [employer] APPLICATIONS DEVELOPER) CHOLESTEROL,TOTAL 190 110 - 199 mg/dL [facility] TRIGLYCERIDES 120 40 - 149 mg/dL [facility] HDL CHOLESTEROL 49 >40 mg/dL [facility] CHOL/HDL RATIO 3.88 <4.51 [facility] LDL CHOLESTEROL 117 <131 mg/dL [facility] PATIENT STATUS Fasting [facility] Blood specimen (specimen) BLOOD SPECIMEN / Unknown 04/11/2010 3:57 PM [employer] DEVELOPER 04/11/2010 3:56 PM [employer] DEVELOPER Radha Casiano MD CHEMISTRY [facility] [place]NAL ZIP [address] [place] [address] from Last 3 Months or Most Recently Relevant to Health Maintenance Care Teams Press Box Custodian Relationship Specialty Start Date End Date [facility] PCP - General 07/21/17
--- OUTSIDE RECORDS SUMMARY | 2023-07-24 17:20 | XMS_ITS | Encounter Summary ---
Author Name Unknown Organization [facility] Address [address] [place] [address] Care Team Providers Care Miter Sawyer Name Role Phone Coming Christiano Holley Burks MD Unavailable [phone] Deana Canales MD Primary Ca re Provider Encounter Details Date Type Department Care Team (Late st Contact Info) Description 12/04/2021 Orders Only [facility] Centralized Scheduling [address] [place] [address] Osmar Santiago MD [address] [place], [place] [id number] Social History Tobacco Use Types Packs/Day Years Used Date Smoking Tobacco: Every Day Cigarettes 0.5 35 Smokeless Tobacco: Never Alcohol Use Standard Drinks/Week Comments Not Currently 0 (1 standard drink = 0.6 oz pur e alcohol) very rare AUDIT-C Answer Date Recorded Frequency of Alcohol Consumption 2-4 times a fri10/17/2018 Average Number of Drinks Not on file 019 Frequency of Binge Drinking Not on file 09/2018 PHQ-2 Answer Date Recorded PHQ-2 Score 0 11/10/2020 Sex and Gender Information Value Date Recorded Sex Assigned at Not on file Gender Identity Not on file Sexual Orientation Not on file COVID-19 Exposure Response Date Recorded In the last 10 days, have yo u been in contact with someone who was confirmed or suspected to have Coronavirus/COVID-19? No / Unsure 11/29/2021 1:30 PM CDT documented as of this encounter Plan of Treatment Not on file documented as of this encounter Visit Diagnoses Not on filedocumented in this encounter Additional Health Concerns Assessment Noted Time PHQ-9 Depression Total Score: 5 11/12/19 21 7:02 AM CDT documented as of this encounter Care Teams Miter Sawyer Relationship Specialty Start Date End Date Deana Canales MD [address] [place] [address] PCP - General Family Medicine 12/04/21 [place] [address] [place] [address] Assigned PCP 11/19/20 documented as of this encounter
--- OUTSIDE RECORDS SUMMARY | 2023-07-24 17:20 | XMS_ITS | Referral Summary ---
Author Name Unknown Organization [facility] Address [address] [place] [address] Care Team Providers Care Licensed Occupational Therapy Assistant Name Role Phone Coming Christiano Holley Burks MD Unavailable [phone] Deana Canales MD Primary Ca re Provider Allergies Active Allergy Reactions Criticality Noted Date Comments No Known Allergies 05/03/2004 Medications Medication Sig Dispensed Refills Start Date End Date Status aspirin (ASA) 81 MG EC tablet Take 81 mg by mouth daily Active MULTIPLE VITAMIN PO Take 1 tablet by mouth daily Active rosuvastatin (CRESTOR) 40 MG tabletIndications: Hyperlipidemia LDL goal <130 Take 1 tablet (40 mg) by mouth daily 90 tablet 3 11/10/2020 Active valsartan-hydrochl orothiazide (DIOVAN HCT) 160-12.5 MG tabletIndications: Hypertension, unspecified type Take 1 tablet by mouth daily 90 tablet 3 11/10/2020 Active omeprazole (PRILOSEC) [address] capsule Take 20 mg by mouth daily Active nicotine (NICODERM CQ) 14 MG/24HR 24 hr patch USE 1 PATCH TRANSDERMALLY EVERY 24 HOURS FOR 4 WEEKS, THEN DECREASE TO 7MCG FOR 2 WEEKS. 11/15/2021 Active nicotine (NICODERM CQ) 7 MG/24HR 24 hr patch 1 PATCH TRANSDERMALLY EVERY 24 HOURS USE FOR 2 WEEKS AFTER COMPLETION OF 4 WEEKS ON 14MCG PATCH 11/14/2021 Active nicotine (COMMIT) [address] LOZENGE IN CHEEK EVERY 1-2 HOURS NEEDED FOR NICOTINE CRAVINGS, MAX:6 LOZENGES/DAY 11/14/2021 Active SUMAtriptan (IMITREX) 50 MG tablet TAKE ONE TABLET BY MOUTH AT ONSET OF HEADACHE, MAY REPEAT IN 2 HOURS IF NEEDED. MAX 200MG IN 24HR 02/24/2021 Active hydrOXYzine (ATARAX) 25 MG tabletIndications: Anxiety,Nervousnes s Take 1 tablet (25 mg) by mouth 3 times daily 60 tablet 3 12/13/2021 Active oxyCODONE (ROXICODONE) 5 MG tabletIndications: Spondylolisthesis of lumbosacral region Take 1 tablet (5 mg) by mouth every 4 hours as needed 60 tablet 12/13/2021 Active methocarbamol (ROBAXIN) 750 MG tabletIndications: Spondylolisthesis of lumbosacral region Take 1 tablet (750 mg) by mouth every 6 hours as needed for muscle spasms 60 tablet 3 12/13/2021 Active Active Problems Problem Noted Date Diagnosed Date Spondylolisthesis 12/13/2021 History of rotator cuff surgery 11/10/2020 History of knee surgery 11/10/2020 Hearing difficulty 11/10/2020 Class 1 obesity due to exces s calories with serious comorbidity and body mass index (BMI) of 34.0 to 34.9 in adult 04/10/2020 Back pain, unspecified back location, unspecified back pain laterality, unspecified chronicity 10/17/2018 Hypertension, unspecified type 10/17/2018 HYPERLIPIDEMIA LDL GOAL <130 02/11/2010 Hypersomnia with sleep apnea 10/03/2004 Overview: Problem list name updated by automated process. Provider to review TOBACCO USE DISORDER [305.1] 05/03/2004 Pure hypercholesterolemia Resolved Problems Problem Noted Date Diagnosed Date Resolved Date Esophageal reflux 06/01/2008 11/10/2020 Overview: Taking nexium. Has not had EGD. Taking nexium. Has not had EGD. Dyspnea and respiratory abnormality 05/03/2004 11/10/2020 Overview: has established Problem list name updated by automated process. Provider to review Immunizations Name Administration Dates Next Due TDAP Vaccine (Adacel) 10/17/2018,01/04/2015,02/13 Twinrix A/B 10/07/2013 Social History Tobacco Use Types Packs/Day Years Used Date Smoking Tobacco: Every Day Cigarettes 0.5 35 Smokeless Tobacco: Never Tobacco Cessation:Ready to Q uit: No; Counseling Given: Yes Alcohol Use Standard Drinks/Week Comments Not Currently 0 (1 standard drink = 0.6 oz pur e alcohol) very rare AUDIT-C Answer Date Recorded Frequency of Alcohol Consumption 2-4 times a fri10/17/2018 Average Number of Drinks Not on file 019 Frequency of Binge Drinking Not on file 09/2018 PHQ-2 Answer Date Recorded PHQ-2 Score 0 11/10/2020 Adolescent Education Answer Date Record ed Getting School Help Needed Not on file 01/27 Sex and Gender Information Value Date Recorded Sex Assigned at Not on file Gender Identity Not on file Sexual Orientation Not on file Last Filed Vital Signs Vital Sign Reading Time Taken Comments Blood Pressure 123/68 12/14/2021 8:17 AM CDT Pulse 102 12/14/2021 8:17 AM CDT Temperature 36.6 ??C (97.9 ??F) 12/14/2021 8:17 AM CD T Respiratory Rate 16 12/14/2021 8:17 AM CDT Oxygen Saturation 95% 12/14/2021 8:17 AM CDT Inhaled Oxygen Concentration - - Weight 103.3 kg (227 lb 12.8 oz) 12/13/2021 8:49 AM CDT Height 180.3 cm (5' 11) 12/13/2021 8:49 AM CDT Body Mass Index 31.77 12/13/2021 8:49 AM CDT Plan of Treatment Not on file Medical Devices Implanted Type Area Registration Clerk Device Identifier Shelf Expiration Date Model / Serial / Lot Screw Set Spne Star Opn Lnk Pathloc-L Strl Lf - [id number] Implanted:Qty : 4 on 12/13/2021 by Julissa Vigil MD at [facility] Metallic Hardware/An chor N/A: Spine Lumbar [employer] SPINE [id number] 09/13/2024 [id number] / / [id number] Jamir Spinal Pathloc-L Curve 50x6mm [id number] - [id number] Implanted:Qty : 2 on 12/13/2021 by Julissa Vigil MD at [facility] Metallic Hardware/An chor N/A: Spine Lumbar [employer] SPINE [id number] / / [id number] 10cc Sheppard-Tcp Sponge 25mm X 100mm Implanted:Qty : 1 on 12/13/2021 by Julissa Vigil MD at [facility] N/A: Spine Lumbar ARIEL [id number] 09/11/2026 AMWS-TCP- 10 / [id number] / [id number] Pathloc-L Mis Spinal System Mis Screw- Close Type Self Tapping- Double Thread 7.5x50mm Implanted:Qty : 3 on 12/13/2021 by Julissa Vigil MD at [facility] N/A: Spine Lumbar 10/08/2026 [id number] / / [id number] Pathloc-L Mis Spinal System Mis Screw- Close Type Self Tapping- Double Thread 7.5x50mm Implanted:Qty : 1 on 12/13/2021 by Julissa Vigil MD at [facility] N/A: Spine Lumbar 08/28/2026 [id number] / / [id number] Imp Wire Amee Amendia 1.4mmx18 Thrd [id number] - [id number] Implanted:Qty : 6 on 12/13/2021 by Julissa Vigil MD at [facility] N/A: Spine Lumbar AMENDIA [id number] / / [id number] Ollif Arrow Cage 27x11 Implanted:Qty : 1 on 12/13/2021 by Julissa Vigil MD at [facility] N/A: Spine Lumbar [id number] / / [id number] Procedures Procedure Name Priority Date/Time Associated Diagnosis Comments BASIC METABOLIC PANEL Routine 12/14/2021 6:35 AM CDT LIPID PANEL (EXTERNAL RESULT) Routine 11/14/2021 9:50 AM CDT from Last 3 Months or Most Recently Relevant to Health Maintenance Results * (ABNORMAL) Basic metabolic panel (12/14/2021 6:35 AM CDT) Creatinine 0.89 0.67 - 1.17 mg/dL 12/14/2021 7:47 AM CDT LABORATORY Sodium 134(L) 136 - 145 mmol/L 12/14/2021 7:47 AM CDT LABORATORY Potassium 4.1 3.4 - 5.3 mmol/L 12/14/2021 7:47 AM CDT LABORATORY Urea Nitrogen 14.9 6.0 - 20.0 mg/dL 12/14/2021 7:47 AM CDT LABORATORY Chloride 98 98 - 107 mmol/L 12/14/2021 7:47 AM CDT LABORATORY Carbon Dioxide (CO2) 26 22 - 29 mmol/L 12/14/2021 7:47 AM CDT LABORATORY Anion Gap 10 7 - 15 mmol/L 12/14/2021 7:47 AM CDT LABORATORY Glucose 123(H) 70 - 99 mg/dL 12/14/2021 7:47 AM CDT LABORATORY GFR Estimate >90 >60 mL/min/1.7 3m2 12/14/2021 7:47 AM CDT LABORATORY Comment:Effective March 152020 eGFRcr in adults is calculated using the 2020 CKD-EPI creatinine equation which includes age and gender (Roney et al., NEJM, DOI: 10.1056/QEYGwm0481157) Calcium 8.8 8.6 - 10.0 mg/dL 12/14/2021 7:47 AM CDT LABORATORY Blood TOPOGRAPHY UNKNOWN / Unknown Venipuncture / Unknown 12/14/2021 6:35 AM CDT 12/14/2021 7:04 AM CDT Julissa Vigil MD LAB - BLOOD ORDERABL ES LABORATORY [facility] [address] [facility] (1st floor, no room number) [place] [address], [facility] [phone] * (ABNORMAL) Lipid Panel (External Result) (11/14/2021 9:50 AM CDT) Cholesterol (External) 154 90 - 199 mg/dL [facility] Triglycerides (External) 196(H) 40 - 149 mg/dL [facility] HDL Cholesterol (External) 46 >=40 mg/dL [facility] LDL Cholesterol (External) 69 <100 mg/dL [facility] Blood 11/14/2021 9:50 AM CDT Narrative [facility] - 11/14/2021 9:50 AM CDT LAB RESULTS [facility] Provider Outside LAB - HIM EXTERNAL R ESULT [facility] [address] [place] [address], [facility] [phone] from Last 3 Months or Most Recently Relevant to Health Maintenance Advance Directives For more information, please contact: [phone] * Full Code (Latest Code Status on File) Date Activated Date Inactivated Comments 12/13/2021 12:12 PM 12/14/2021 1:31 PM All basic and advanced life-sustaining interventions are performed as appropriate Question Answer Comments Code status determined by: Discussion with abilio nt/ legal decision maker Care Teams Licensed Occupational Therapy Assistant Relationship Specialty Start Date End Date Deana Canales MD [facility] [address] [facility] [place] [id number] PCP - General Family Medicine 12/04/21 [place] [address] [place] [address] Assigned PCP 11/19/20
--- OUTSIDE RECORDS SUMMARY | 2023-07-24 17:20 | XMS_ITS | Clinical Summary ---
Author Name Unknown Organization [facility] Address [address] [place] [address] Care Team Providers Care Solar Energy Consultant And Designer Name Role Phone Coming Christiano Holley Burks MD Unavailable [phone] Deana Canales MD Primary Ca re Provider [...] TDAP Vaccine (Adacel) 10/17/2018,01/04/2015,02/13 Twinrix A/B 10/07/2013 Family History Medical History Relation Comments No Known Problems Father Jaundice Mother Relation Status Comments Father Mother Social History Tobacco Use Types Packs/Day Years [...] 12/13/2021 8:49 AM CDT Plan of Treatment Health Maintenance Due Date Last Done Comments ANNUAL REVIEW OF HM ORDERS 1964 CT COLONOGRAPHY 1964 FIT 1964 FLEX SIG 1964 sDNA (Cologuard) 1964 Pneumococcal Vaccine: Pediatrics (0 to 5 Years) and At-Risk Patients (6 to 64 Years) (1 of 2 - PCV) 1970 COLONOSCOPY 1974 COLORECTAL CANCER SCREENING 1974 HEPATITIS B IMMUNIZATION (2 of 3 - Hep B Twinrix 3-dose series) 11/04/2013 10/07/2013 LUNG CANCER SCREENING 2014 ZOSTER IMMUNIZATION (1 of 2) 2014 YEARLY PREVENTIVE VISIT 11/10/2021 11/10/2020, 05/03 LIPID 11/14/2022 11/14/2021, 10/14, 04/21/2020, Additional history exists COVID-19 Vaccine (1 - season) 2022 INFLUENZA VACCINE (#1) 2022 PHQ-2 (once per calendar year) 2023 11/10/2020, 11/10/2020, 10/17/2018 GLUCOSE 12/14/2024 12/14/2021, 05/2021, 11/14/2021, Additional history exists ADVANCE CARE PLANNING 11/13/2025 11/13/2020 DTAP/TDAP/TD IMMUNIZATION (4 - Td or Tdap) 10/17/2028 10/17/2018, 01/04/2015, 03/06/2012 HEPATITIS C SCREENING Addressed 11/10/2020 (Decline d) Overridden with the intention of not completing the topic HIV SCREENING Addressed 11/10/2020 (Declined) Overr idden with the intention of not completing the topic HPV IMMUNIZATION Aged Out No longer e ligible based on patient's age to complete this topic IPV IMMUNIZATION Aged Out No longer e ligible based on patient's age to complete this topic MENINGITIS IMMUNIZATION Aged Out No l onger eligible based on patient's age to complete this topic RSV MONOCLONAL ANTIBODY Aged Out No l onger eligible based on patient's age to complete this topic Medical Devices Implanted Type Area Communications Systems Engineer Device Identifier Shelf Expiration Date Model / Serial / Lot Screw Set Spne Star Opn Lnk Pathloc-L Strl Lf - [id number] Implanted:Qty : 4 on 12/13/2021 by Julissa Vigil MD at [facility] Metallic Hardware/An chor N/A: Spine Lumbar AEGIS SPINE [id number] 09/13/2024 [id number] / / [id number] Jamir Spinal Pathloc-L Curve 50x6mm [id number] - [id number] Implanted:Qty : 2 on 12/13/2021 by Julissa Vigil MD at [facility] Metallic Hardware/An chor N/A: Spine Lumbar AEGIS SPINE [id number] / / [id number] 10cc Sheppard-Tcp Sponge 25mm X 100mm Implanted:Qty : 1 on 12/13/2021 by Julissa Vigil MD at [facility] N/A: Spine Lumbar ARIEL [id number] 09/11/2026 AMWS-TCP- 10 / [id number] / [id number] Pathloc-L Mis Spinal System Mis Screw- Close Type Self Tapping- Double Thread 7.5x50mm Implanted:Qty : 3 on 12/13/2021 by Julissa Vigil MD at [facility] N/A: Spine Lumbar 10/08/2026 [id number] / / [id number] Pathloc-L Mis Spinal System Mis Screw- Close Type Self Tapping- Double Thread 7.5x50mm Implanted:Qty : 1 on 12/13/2021 by Julissa Vigil MD at [facility] N/A: Spine Lumbar 08/28/2026 [id number] / / [id number] Wire Amee Amendia 1.4mmx18 Thrd 9080-18t - [id number] Implanted:Qty : 6 on 12/13/2021 by Julissa Vigil MD at [facility] N/A: Spine Lumbar AMENDIA 9080-18T / / [id number] Ollif Arrow Cage 27x11 Implanted:Qty : 1 on 12/13/2021 by Julissa Vigil MD at [facility] N/A: Spine Lumbar [id number] / / [id number] Procedures Procedure Name Priority Date/Time Associated Diagnosis [...] includes age and gender (Roney et al., NEJ, DOI: 10.1056/[id number]) Calcium 8.8 8.6 - 10.0 mg/dL 12/14/2021 7:47 AM CDT LABORATORY Blood TOPOGRAPHY UNKNOWN / Unknown Venipuncture / Unknown 12/14/2021 6:35 AM CDT 12/14/2021 7:04 AM CDT Julissa Vigil MD LAB - BLOOD ORDERABL ES LABORATORY [facility] Acute Care Lab [address] [facility] (1st floor, no room number) [place] [address], [facility] [phone] * (ABNORMAL) Lipid Panel (External Result) (11/14/2021 9:50 AM CDT) Cholesterol (External) 154 90 - 199 mg/dL [facility] Triglycerides (External) 196(H) 40 - 149 mg/dL [facility] HDL Cholesterol (External) 46 >=40 mg/dL [facility] LDL Cholesterol (External) 69 <100 mg/dL [facility] Blood 11/14/2021 9:50 AM CDT Narrative [facility] - 11/14/2021 9:50 AM CDT LAB RESULTS [facility] Provider Outside LAB - HIM EXTERNAL R ESULT [facility] [address] [place] [address], [facility] [phone] from Last 3 Months or Most Recently Relevant to Health Maintenance Advance Directives For more information, please contact: [phone] * Full Code (Latest Code Status on File) Date Activated Date Inactivated Comments 12/13/2021 12:12 PM 12/14/2021 1:31 PM All basic and advanced life-sustaining interventions are performed as appropriate Question Answer Comments Code status determined by: Discussion with abilio nt/ legal decision maker Care Teams Solar Energy Consultant And Designer Relationship Specialty Start Date End Date Deana Canales MD [facility] [address] [place] [address] PCP - General Family Medicine 12/04/21 [place] [address] [place] [address] Assigned PCP 11/19/20
--- OUTSIDE RECORDS SUMMARY | 2023-07-24 17:20 | XMS_ITS | Clinical Summary ---
Author Name Unknown [facility] Address [address], [place] [address] Care Team Providers Care Scrap Baller Name Role Phone Clinician, Not Found MD Primary Care Provider Un available Source Comments You are receiving this document as you are listed as the primary care provider,follow-up provider, or the patient has been referred to you for consultation.This is in compliance with the Medicare and[facility] EHR Incentive Program,which states Providers who transition their patient to another setting of careor provider of care or refers their patient to another provider of care shouldprovide summary care record for each transition of care or referral. [facility] Allergies No known active allergies Medications Medication Sig Dispensed Refills Start Date End Date Status Valsartan-hydroCHL OROthiazide (DIOVAN-HCT) 160-12.5 MG tablet Take 1 Tablet by mouth daily. 04/11/2020 Active rosuvastatin (CRESTOR) 40 MG tablet 05/29/2020 Active aspirin EC 81 MG enteric coated tablet Take 81 mg by mouth daily. Active pregabalin (LYRICA) 50 MG capsule Take 2 Capsules by mouth two times a day. Week 1:1 q.h.s., week 2:1 b.i.d., week 3:1 q.a.m. and 2 qhs, week 4: 2 b.i.d. 120 Capsule 1 08/17/2020 Active Additional Information Patient not taking.Reported on 09/14/2020 Active Problems Problem Noted Date Diagnosed Date Obesity (BMI 30-39.9) 10/07/2013 Tobacco use disorder 03/06/2012 Essential hypertension 04/27/2010 Esophageal reflux 06/01/2008 Overview: Taking nexium. Has not had EGD. Social History Tobacco Use Types Packs/Day Years Used Date Smoking Tobacco: Every Day Cigarettes Smokeless Tobacco: Never Comments:<pack per day Alcohol Use Standard Drinks/Week Comments Yes 0 (1 standard drink = 0.6 oz pur e alcohol) occ Sex and Gender Information Value Date Recorded Sex Assigned at Not on file Gender Identity Not on file Sexual Orientation Not on file Last Filed Vital Signs Vital Sign Reading Time Taken Comments Blood Pressure 127/81 09/14/2020 11:07 AM CDT Pulse 79 09/14/2020 11:07 AM CDT Temperature 35.8 ??C (96.4 ??F) 09/14/2020 10:00 AM C DT Respiratory Rate 16 09/14/2020 11:07 AM CDT Oxygen Saturation 94% 09/14/2020 11:07 AM CDT Inhaled Oxygen Concentration - - Weight 99.8 kg (220 lb) 08/17/2020 3:07 PM CDT Height 172.7 cm (5' 8) 06/01/2020 2:13 PM HIGH RISK CASE MANAGER Body Mass Index 33.45 06/01/2020 2:13 PM HIGH RISK CASE MANAGER Plan of Treatment Health Maintenance Due Date Last Done Comments Colon Cancer Screening Plan Due 1965 Hep C Screening (Preventive Services) 1964 PSA Screening Discussion 1964 Pneumococcal (1 - PCV) 1970 HIV Screening (Preventive Services) 1980 Adult Preventive Visit 1982 HepB (1) 1983 Cholesterol 1999 Zoster/Shingles (1 of 2) 2014 COVID-19 Vaccine (1 - 2022-2 4 season) 2022 Influenza (#1) 2022 DTaP/Tdap/Td (4 - Tdap) 10/17/2028 10/18/19 19, 01/04/2015, 03/06/2012 HepA Aged Out 10/07/2013 No longer eligi ble based on patient's age to complete this topic Hib Aged Out No longer eligi ble based on patient's age to complete this topic IPV (Polio) Aged Out No longer eligi ble based on patient's age to complete this topic MCV4 Aged Out No longer eligi ble based on patient's age to complete this topic Care Teams Scrap Baller Relationship Specialty Start Date End Date Clinician, Not Found, [place] [address] PCP - General 05/05/20
--- OUTSIDE RECORDS SUMMARY | 2023-07-24 17:20 | XMS_ITS | Encounter Summary ---
Author Name Unknown Organization [facility] Address [address] [place] [address] Care Team Providers Care Fire Extinguisher Mechanic Name Role Phone No Ref-Primary, Physician Primary Care Provider Coming July Kimmie CALVIN Unavailable [phone]- [phone] Deana Canales MD Primary Ca re Provider Encounter Details Date Type Department Care Team (Late st Contact Info) Description 11/28/2021 Orders Only [facility] [address] [place] [address] Julissa Vigil MD [facility] [address] [place] [address] Pre-operative laboratory examination (Primary Dx) Social History Tobacco Use Types Packs/Day Years Used Date Smoking Tobacco: Every Day Cigarettes 1 35 Smokeless Tobacco: Never Alcohol Use Standard [...] on file documented as of this encounter Results * Asymptomatic COVID-19 Virus (Coronavirus) by PCR Nose (12/10/2021 3:52 PM CDT) SARS CoV2 PCR Negative Negative 12/11/2021 8:18 PM CDT [facility] Comment:NEGATIVE: SARS-CoV-2 (COVID-19) RNA not detected, presumed negative. Swab NASAL STRUCTURE / Unknown Non-blood Collection / Unknown 12/10/2021 3:52 PM CDT 12/10/2021 3:53 PM CDT Narrative [facility] - 12/11/2021 8:18 PM CDT Testing was performed using the Aptima SARS-CoV-2 Assay on the [employer] Instrument System. Additional information about this Emergency Use Authorization (EUA) assay can be found via the Lab Guide. This test should be ordered for the detection of SARS-CoV-2 in individuals who meet SARS-CoV-2 clinical and/or epidemiological criteria. Test performance is unknown in asymptomatic patients. This test is for in vitro diagnostic use under the FDA EUA for laboratories certified under CLIA to perform high complexity testing. This test has not been FDA cleared or approved. A negative result does not rule out the presence of PCR inhibitors in the specimen or target RNA in concentration below the limit of detection for the assay. The possibility of a false negative should be considered if the patient's recent exposure or clinical presentation suggests COVID-19. This test was validated by the [facility]. This laboratory is certified under the Clinical Laboratory Improvement Amendments of 1988 (CLIA-88) as qualified to perform high complexity laboratory testing. Julissa Vigil MD LAB - MICRO GENERAL ORDERABLES [facility] Inf. Diseases Diag. Lab [address] [facility] [place] [address], [facility] [phone] documented in this encounter Visit Diagnoses Diagnosis Pre-operative laboratory examination- Primary Pre-procedural laboratory examination documented in this encounter Additional Health Concerns Assessment Noted Time PHQ-9 Depression Total Score: 5 11/12/19 21 7:02 AM CDT documented as of this encounter Care Teams Fire Extinguisher Mechanic Relationship Specialty Start Date End Date No Ref-Primary, Physician PCP - General 10/16/18 12/03/21 Deana Canales MD [facility] [address] [place] [address] [place] [address] PCP - General Family Medicine 12/04/21 [place] [address] [place] [address] Assigned PCP 11/19/20 documented as of this encounter
--- OUTSIDE RECORDS SUMMARY | 2023-07-24 17:20 | XMS_ITS | Continuity of Care Document ---
Author Name Unknown Organization [facility] Address [address] [place] [address] Phone Care Team Providers Care Brick Tosser Name Role Phone Robert Mary Unavailable Unavailable [...] - Active Procedures Procedure Date Office/Outpatient Visit,New, [facility] 2019 Advance Directives Directive Yes / No Effective Date File Name No Information Encounters Encounter Description Practice Location Reason(s) For Visit Diagnoses Date Provider Providers Copied on Encounter Office/Outpat ient Visit,New, [facility], [address], [employer], [place], [id number], [place] tel:[phone] [facility] Other intervertebral disc degeneration, lumbar regionSpinal stenosis, lumbar region without neurogenic claudication 0 Panelainea Robert. [facility], [address] [place] [address], [address], [place], [place], [id number] , [place]. tel:[phone] Referring Provider: Giles Billingsley , [facility] [address], [place], [address]. tel:[phone] Family History Family Member Type Diagnosis Age At Onset No Information Payers Payer name Insurance type Covered alliance party ID Authoreugenea raza(s) [employer] Individual [employer] Family Plans [id number] Social History Type Description Quantity Date [...]
== END 2023-07-24 17:17 | disposition home or self-care (01) ==
LOC: LKVREF 17:18
PROVIDERS: PCP Family Medicine; Visit Provider Nurse Practitioner Family
DX: Z01.818 Encounter for other preprocedural examination (principal)
CPT/HCPCS: 80048

== ENCOUNTER 2024-02-13 14:26 | Outpatient (CLI) | payer BC, SELFPAY | END 2024-02-13 14:27 | disposition home or self-care (01) | PROVIDERS: PCP Family Medicine; Visit Provider Family Medicine | DX: E78.1 Pure hyperglyceridemia (principal); I10 Essential (primary) hypertension; Z11.59 Encounter for screening for other viral diseases | CPT/HCPCS: 80053; 80061; 82043; 82570; 86803 ==

== ENCOUNTER 2024-11-08 08:22 | Outpatient (CLI) | payer BC, SELFPAY | END 2024-11-08 08:23 | disposition home or self-care (01) | PROVIDERS: PCP Family Medicine; Visit Provider Physician Assistant Medical | DX: I10 Essential (primary) hypertension (principal); Z12.5 Encounter for screening for malignant neoplasm of prostate | CPT/HCPCS: 80053; 84439; 84443; G0103 ==

== ENCOUNTER 2025-03-28 17:10 | Outpatient (CLI) | payer BC, SELFPAY | END 2025-03-28 17:11 | disposition home or self-care (01) | PROVIDERS: PCP Family Medicine; Visit Provider Family Medicine | DX: E78.1 Pure hyperglyceridemia (principal); I10 Essential (primary) hypertension | CPT/HCPCS: 80053; 80061; 82043; 82306; 82570; G0103 ==